=== PATIENT | male | born 1990 | race American Indian/Alaskan Native ===

== ENCOUNTER 2016-09-12 18:31 | Emergency (ER) | payer SELFPAY ==
[2016-09-12 19:27] LABS: Basophils % (Auto) 0.2 % (0.0-1.8); Eosinophils % (Auto) 0.5 % (0.0-4.3); Hematocrit 43.2 % (35.5-45.6); Hemoglobin 13.5 gm/dl (11.8-15.2); Mean Corpuscular HGB Conc 31 % (32-34); Mean Corpuscular Volume 73 fl (84-94); Platelet Count 205 K/mm3 (140-440); Red Blood Count 5.93 M/mm3 (3.65-5.03); Red Cell Distribution Width 15.4 % (13.2-15.2); White Blood Count 13.8 K/mm3 (4.5-11.0)
[2016-09-12 19:30] LABS: Mean Corpuscular Hemoglobin 23 pg (28-32)
[2016-09-12 19:43] LABS: Bilirubin,Urine NEG (Negative); Blood,Urine LG (Negative); Ketones,Urine TR mg/dL (Negative); Leukocyte Esterase,Urine NEG (Negative); Mucus,Urine 2+ /HPF; Nitrite,Urine NEG (Negative); Urobilinogen,Urine < 2.0 mg/dL (<2.0)
[2016-09-12 19:47] LABS: RBC,Urine > 182.0 /HPF (0.0-6.0)
[2016-09-12 19:48] LABS: Alanine Aminotransferase 18 units/L (7-56); Albumin 4.2 g/dL (3.9-5); Albumin/Globulin Ratio 1.2 %; Alkaline Phosphatase 73 units/L (35-129); Anion Gap 19 mmol/L; BUN/Creatinine Ratio 12.22; Bilirubin,Total 0.3 mg/dL (0.1-1.2); Blood Urea Nitrogen 11 mg/dL (9-20); Calcium 9.3 mg/dL (8.4-10.2); Carbon Dioxide 22 mmol/L (22-30); Glucose 125 mg/dL (75-100); Lipase 20 units/L (13-60); Potassium 3.7 mmol/L (3.6-5.0); Sodium 136 mmol/L (137-145); Total Protein 7.8 g/dL (6.3-8.2)
[2016-09-12] MEDS ORDERED: NACL 0.9% 1000 ML 1,000 ML IV ONE (20:58)
[2016-09-12] MEDS ORDERED: ZOFRAN IV ONE (20:58)
[2016-09-12] MEDS ORDERED: SUBLIMAZE IV ONE (20:58)
[2016-09-12] MEDS ORDERED: TORADOL IV ONE (20:58)
--- NOTE | 2016-09-12 21:04 | Emergency Department Report ---
HPI - General Chief Complaint: Abdominal Pain Time Seen by Provider: 09/12/16 20:48 - HPI HPI: Room 26 The patient is a 25-year-old male presenting with a chief complaint of right flank pain. Patient states 4 hours ago he developed sudden onset of right flank pain rating to the groin. Patient denies previous episodes of same. Patient admits to nausea vomiting. Patient gives his pain a score of 10/10. Location: Right flank Duration: 4 hours Quality: Pain Severity: 10/10 Modifying factors: [see above] Context: [see above] Mode of transportation: [not driving] ED Past Medical Hx - Past Medical History Hx HIV: Yes (last CD4 count 800s in 2016) - Surgical History Additional Surgical History: LEFT EYE SURGERY -CHILD - Family History Family history: no significant - Social History Smoking Status: Current Every Day Smoker Substance Use Type: Alcohol - Medications Home Medications: Home Medications Medication Instructions Recorded Confirmed Last Taken Type Elvitegr/Cobicist/Emtric/Tenof 1 each PO DAILY 09/12/16 09/12/16 09/11/16 20:00 History [Stribild Tablet] Ketorolac [Toradol] 10 mg PO Q6H PRN #16 tablet 09/12/16 Unknown Rx Promethazine [Phenergan] 25 mg [place] Q6HR PRN #5 supp.rect 09/12/16 Unknown Rx Tamsulosin [Flomax] 0.4 mg PO QDAY #3 cap 09/12/16 Unknown Rx oxyCODONE /ACETAMINOPHEN [Percocet 1 - 2 tab PO Q6HR PRN #20 tablet 09/12/16 Unknown Rx 5/325] ED Review of Systems ROS: Stated complaint: SEVERE ABD PAIN/ Other details as noted in HPI Comment: All other systems reviewed and negative Constitutional: denies: chills, fever Eyes: denies: eye pain, eye discharge, vision change ENT: denies: ear pain, throat pain Respiratory: denies: cough, shortness of breath, wheezing Cardiovascular: denies: chest pain, palpitations Endocrine: no symptoms reported Gastrointestinal: abdominal pain, nausea, vomiting Genitourinary: denies: urgency, dysuria Musculoskeletal: back pain Skin: denies: rash, lesions Neurological: denies: headache, weakness, paresthesias Psychiatric: denies: anxiety, depression Hematological/Lymphatic: denies: easy bleeding, easy bruising Physical Exam - Physical Exam Vital Signs: Vital Signs 09/12/16 18:55 Temperature 97.4 F L Pulse Rate 48 L Respiratory 17 Rate Blood Pressure 202/120 O2 Sat by Pulse 100 Oximetry Physical Exam: GENERAL: The patient is well-developed well-nourished male lying on stretcher appearing to be in moderate discomfort. [] HEENT: Normocephalic. Atraumatic. Extraocular motions are intact. Patient has moist mucous membranes. NECK: Supple. No meningitic signs are noted. Again midline CHEST/LUNGS: Clear to auscultation. There is no respiratory distress noted. HEART/CARDIOVASCULAR: Regular. There is no tachycardia. There is no gallop rub or murmur. ABDOMEN: Abdomen is soft, with discomfort in the right flank. Patient has normal bowel sounds. There is no abdominal distention. SKIN: There is no rash. There is no edema. There is no diaphoresis. NEURO: The patient is awake, alert, and oriented. The patient is cooperative. The patient has normal speech MUSCULOSKELETAL: There is no right CVA tenderness. There is no evidence of acute injury. ED Course Vital Signs 09/12/16 18:55 Temperature 97.4 F L Pulse Rate 48 L Respiratory 17 Rate Blood Pressure 202/120 O2 Sat by Pulse 100 Oximetry - Reevaluation(s) Reevaluation #1: 09/12/16 22:48 Patient states he feels much improved ED Medical Decision Making - Lab Data Result diagrams: 09/12/16 19:15 09/12/16 19:15 Laboratory Tests 09/12/16 09/12/16 09/12/16 19:15 19:15 19:26 WBC 13.8 H RBC 5.93 H Hgb 13.5 Hct 43.2 MCV 73 L MCH 23 L MCHC 31 L RDW 15.4 H Plt Count 205 Lymph % (Auto) 16.4 [place] % (Auto) 6.3 Eos % (Auto) 0.5 Baso % (Auto) 0.2 Lymph # 2.3 [place] # 0.9 H Eos # 0.1 Baso # 0.0 Seg Neutrophils % 76.6 H Seg Neutrophils # 10.6 H Sodium 136 L Potassium 3.7 Chloride 99.0 Carbon Dioxide 22 Anion Gap 19 BUN 11 Creatinine 0.9 Estimated GFR > 60 BUN/Creatinine Ratio 12.22 Glucose 125 H Calcium 9.3 Total Bilirubin 0.3 AST 21 ALT 18 Alkaline Phosphatase 73 Total Protein 7.8 Albumin 4.2 Albumin/Globulin Ratio 1.2 Lipase 20 Urine Color Yellow Urine Turbidity Cloudy Urine pH 6.0 Ur Specific [place] 1.025 Urine Protein 100 mg/dl Urine Glucose (UA) Neg Urine Ketones Tr Urine Blood Lg Urine Nitrite Neg Urine Bilirubin Neg Urine Urobilinogen < 2.0 Ur Leukocyte Esterase Neg Urine WBC (Auto) 3.0 Urine RBC (Auto) > 182.0 Urine Mucus 2+ - Radiology Data Radiology results: report reviewed (CT abdomen and pelvis), image reviewed (CT abdomen and pelvis) ED abdomen pelvis (read by radiologist)-5 x 4 mm calculus in the distal right ureter causing moderate right-sided hydroureteronephrosis. There are multiple bilateral punctate nonobstructing renal calculi. No other gross acute findings. - Differential Diagnosis renal colic, pyelonephritis Critical care attestation.: If time is entered above; I have spent that time in minutes in the direct care of this critically ill patient, excluding procedure time. ED Disposition Clinical Impression: Acute right flank pain, Renal colic on right side Disposition: DISCHARGED TO HOME OR SELFCARE Is pt being admited?: No Does the pt Need Aspirin: No Condition: Stable Instructions: Renal Colic (ED) Additional Instructions: Return to the emergency department immediately should you develop worsening symptoms, fever, inability to tolerate food or liquid or any other concerns. Prescriptions: Ketorolac [Toradol] 10 mg PO Q6H PRN #16 tablet PRN Reason: Pain oxyCODONE /ACETAMINOPHEN [Percocet 5/325] 1 - 2 tab PO Q6HR PRN #20 tablet PRN Reason: Pain Promethazine [Phenergan] 25 mg [place] Q6HR PRN #5 supp.rect PRN Reason: Vomiting Tamsulosin [Flomax] 0.4 mg PO QDAY #3 cap Referrals: MIKKI CRUMP MD [Staff Physician] - 2-3 Days (Dr. Crump is a urologist. Please follow up with him for further evaluation) Time of Disposition: 22:48
--- NOTE | 2016-09-12 21:46 | Cat Scan Report ---
FINAL REPORT EXAM: CT ABDOMEN PELVIS WO CON HISTORY: right flank pain COMPARISON: None available. TECHNIQUE: Contiguous axial images were obtained. Additional sagittal and coronal reformatted images were obtained. FINDINGS: Subpleural nodule at the margin the right lower lobe measuring 3 millimeters. This is likely postinflammatory. Mild atelectasis at the lung bases. Small hiatal hernia. No calcified gallstones. Liver, spleen, pancreas and adrenal glands are grossly unremarkable. Bilateral punctate nonobstructive renal calculi. They range in size between 2 and 4 millimeters. No hydronephrosis on the left. Moderate dilatation right renal pelvis and ureter. Within the distal right ureter there is a 5 x 4 millimeter calculus. This is approximately 5 centimeters from the UVJ. Urinary bladder and prostate gland are grossly unremarkable. No free fluid or lymphadenopathy. Large and small bowel loops normal in caliber. The appendix is normal in caliber. Mild diverticulosis of the colon. No diverticulitis. Bony pelvis is grossly intact. Lumbar vertebral body heights are preserved. IMPRESSION: 5 x 4 millimeter calculus in the distal right ureter causing moderate right-sided hydroureteronephrosis. There multiple bilateral punctate nonobstructive renal calculi. No other gross acute findings.
[2016-09-12] MEDS ORDERED: DILAUDID IV ONE (21:51)
[2016-09-12 22:37] VITALS: BP 155/101
== END 2016-09-12 22:58 | disposition home or self-care (01) ==
LOC: ED 18:31
DX: N23 Unspecified renal colic (principal); R10.30 Lower abdominal pain, unspecified; F17.200 Nicotine dependence, unspecified, uncomplicated; Z21 Asymptomatic human immunodeficiency virus [HIV] infection status
CPT/HCPCS: 36415; 74176; 80053; 81001; 83690; 85025; 96361; 96374; 96375; 99284; J1170; J1885; J2405; J3010; J7030